=== PATIENT | female | born 2005 | race Hispanic/Latino ===

== ENCOUNTER 2023-01-18 21:20 | Emergency (ER) | payer OTHER ==
[2023-01-18] MEDS ORDERED: Ketorolac Tromethamine 30 MG/ML VIAL ONE (21:54)
== END 2023-01-18 22:07 | disposition home or self-care (01) ==
LOC: CSHERS 21:20
DX: B34.9 Viral infection, unspecified (principal)
CPT/HCPCS: 96372; 99283; J1885

== ENCOUNTER 2023-01-19 18:17 | Emergency (ER) | payer OTHER ==
[2023-01-19] MEDS ORDERED: Ondansetron ODT 4 MG TAB ONE (19:46)
[2023-01-19 20:37] LABS: SARS-CoV-2 NAA Rapid Test Not Detected (NotDetected)
[2023-01-19] MEDS ORDERED: Acetaminophen 325 MG TAB ONE (21:20)
== END 2023-01-19 21:24 | disposition home or self-care (01) ==
LOC: CSHERS 18:17
DX: J11.1 Influenza due to unidentified influenza virus with other respiratory manifestations (principal); Z20.822 Contact with and (suspected) exposure to COVID-19
CPT/HCPCS: 87081; 87430; 96372; 99283; J1885; Q0162

== ENCOUNTER 2023-08-15 11:52 | Emergency (ER) | payer OTHER, SELFPAY | END 2023-08-15 13:20 | disposition home or self-care (01) | LOC: CSHERS 11:52 | DX: L25.9 Unspecified contact dermatitis, unspecified cause (principal) | CPT/HCPCS: 99282 ==